=== PATIENT | female | born 1960 | race Caucasian/White ===

== ENCOUNTER 2016-12-20 04:31 | Inpatient (IN) ==
--- NOTE | 2016-12-20 05:12 | Emergency Department Note ---
Joni Cole Brittany, am scribing for, and in the presence of, Lorne Lugo MD 05:01. Parish Cole Robert M, MD, personally performed the services described in this documentation, ascribed by Alicia Quinones in my presence, and it is both accurate and complete 507 . Arrival - Arrival Chief Complaint: Abdominal / Flank Pain Stated Complaint: abd pain ED Nursing Triage Note: Patient to room via ems. Patient was transfered from [facility] for obstructive gallstone of the common bile duct. Mode of Arrival: Stretcher Limitations: No Limitations Source: Patient, Family - History of Present Illness HPI Narrative: This is a 56 y/o white female,who presents to the ED by EMS for further evaluation of obstructive gallstone. She was transferred from [facility] for further evaluation of obstructive gallstones of the common bile duct. She reports she was having right upper quadrant pain which radiated into her back. She states the pain was so intense she started to vomit. Pt reports the pain is now gone. Pt has no other complaints/pain in the ED at this time. Pt has a PMHx of HTN and NIDDM. Pt denies a surgical Hx. Pt denies a family medical Hx. Pt denies a social Hx. Onset (ago): hour(s) (Earlier today) Consistency: now resolved Severity: moderate Allergies/Adverse Reactions: Allergies Allergy/AdvReac Type Severity Reaction Status Date / Time No Known Allergies Allergy Unverified 12/20/16 04:39 Home Medications: Home Medications Medication Instructions Recorded Confirmed Type Dapagliflozin Propanediol [Farxiga] 20 mg PO DAILY 12/20/16 12/20/16 History Lisinopril 20 mg PO DAILY 12/20/16 12/20/16 History Review of System - Review of System 12 point system: reviewed and no additional remarkable complaints except as stated - Review of System Gastrointestinal: Present: abdominal pain, nausea, vomiting Medical,Surgical,& Family Hx - Medical History Cardio: History of: Hypertension Endocrine: History of: Diabetes Mellitus (NIDDM) - Social History Smoking Status: Never smoker Frequency of Alcohol Use: None Type of Drug Use: None Exam Vital Signs: Vital Signs Temperature 97.8 F 12/20/16 04:32 Pulse Rate 94 H 12/20/16 04:32 Respiratory Rate 18 12/20/16 04:32 Blood Pressure 128/58 12/20/16 04:32 O2 Sat by Pulse Oximetry 97 12/20/16 04:32 - General General appearance: alert, in no apparent distress - Head Head exam: Present: atraumatic, normocephalic, normal inspection - Eye Eye exam: Present: normal appearance, PERRL, EOMI. Absent: nystagmus, miosis, mydriasis - ENT ENT exam: Present: normal exam, normal oropharynx, mucous membranes moist - Neck Neck exam: Present: normal inspection, full ROM, trachea midline. Absent: tenderness, meningismus, lymphadenopathy, thyromegaly - Chest Chest inspection: Present: normal inspection, symmetric chest wall rise. Absent : tenderness, rash, abscess - Respiratory Respiratory exam: Present: normal lung sounds bilaterally. Absent: rales, respiratory distress, rhonchi, stridor, wheezes - Cardiovascular Cardiovascular exam: Present: regular rate, normal rhythm, normal heart sounds. Absent: murmur, rubs, gallop, clicks, JVD - Abdominal Exam Abdominal exam: Present: soft, tenderness (Mild uppergastric tenderness), normal bowel sounds. Absent: distention, guarding, rebound, rigidity - Rectal Exam Rectal exam: Present: deferred - Extremities Exam Extremities exam: Present: normal inspection, full ROM, normal capillary refill. Absent: pedal edema, joint swelling, calf tenderness - Back Exam Back exam: Present: normal inspection, full ROM. Absent: tenderness, muscle spasm, rashes - Neurological Exam Neurological exam: Present: alert, oriented X3, CN II-XII intact. Absent: motor sensory deficit - Psychiatric Psychiatric exam: Present: normal affect, normal mood. Absent: depressed, agitated, anxious, flat affect, manic - Skin Skin exam: Present: warm, dry, intact, normal color. Absent: rash, cyanosis, diaphoresis, erythema, pallor, mottled Course - Consultations Consultation #1: Dr. Luis Hancock has been paged and will admit the patient. Time: 05:08 Disposition Clinical Impression: Choledocholithiasis Case discussed with: patient, patient's family Disposition: Disch To Home/Self Care Condition: Stable Time of Disposition: 05:08
--- NOTE | 2016-12-20 05:36 | Hospitalist History & Physical ---
Assessment and Plan (1) Cholecystitis Status: Acute Current Visit: Yes (2) Diabetes Status: Acute Current Visit: Yes (3) Choledocholithiasis Status: Acute Assessment and plan: Plan for this patient will be admission to the hospital. We will keep her n.p.o. provide her with IV fluids antibiotics analgesia and surgery consult. We will also order a right upper quadrant abdominal ultrasound Current Visit: Yes History of Present Illness Chief complaint: Abdominal pain History of present illness: Ms. Zurita is a 56 year old female past medical history significant for diabetes and anemia who is been experiencing abdominal pain off and on 1 year. Patient reports that her pains and be associated with eating during this time. She reports for the past week her symptoms are really increased. That this pain has been coming and going and when it occurs it she rates a 10 out of 10. It seems to be upper gastric and radiates to her back. She gets real nauseated with emesis. She went to [place] today and had a CT scan that showed a distended gallbladder with a thickened wall consistent with cholecystitis. I was consulted to admit her to the ER. Home Medications Medication Instructions Recorded Confirmed Type Dapagliflozin Propanediol [Farxiga] 20 mg PO DAILY 12/20/16 12/20/16 History Lisinopril 20 mg PO DAILY 12/20/16 12/20/16 History Allergies Allergy/AdvReac Type Severity Reaction Status Date / Time No Known Allergies Allergy Unverified 12/20/16 04:39 Medical,Surgical,& Family Hx - Medical History Cardio: History of: Hypertension Endocrine: History of: Diabetes Mellitus (NIDDM) - Surgical History Reproductive Surgeries: Surgical HX of;: Section Orthopedic Surgeries: Surgical HX of;: Orthopedic Surgery - Family History Family History: Reports;: Family Cancer, Family Diabetes, Additional Family History Additional Family History: Gallbladder issues - Social History Smoking Status: Never smoker Frequency of Alcohol Use: None Type of Drug Use: None 12 point system: reviewed and no additional remarkable complaints except as stated Exam - Constitutional Vitals: Period Temp Pulse Resp BP Sys/Morrissey Pulse Ox Last 24 Hr 97.8 F-97.8 F 94-94 18-18 128-128/58-58 97 General appearance: no acute distress, over weight - Head Head exam: Present: normal inspection - Eye Eye exam: Present: EOMI Pupils: Present: TUCKER - ENT ENT exam: Present: normal exam - Neck Neck exam: Present: normal inspection - Respiratory Respiratory exam: Present: clear to auscultation bilaterally - Cardiovascular Cardiovascular exam: Present: regular rate and rhythm - GI/Abdominal GI/Abdominal exam: Present: normal bowel sounds, tenderness. Absent: rebound - Extremities Exam Extremities exam: Present: normal inspection - Back Exam Back exam: Present: normal inspection - Neurological Exam Neurological exam: Present: alert - Psychiatric Psychiatric exam: Present: normal affect - Skin Skin exam: Present: normal color Results - Labs Labs: Labs from outside facility displayed glucose 140 BUN 5 creatinine 0.7 calcium 7.8 sodium 145 potassium 3.5 chloride 109 bicarb 27 total protein 6.7 serum albumin 2.7 total bili 3.2 direct bili 1.7 alk phos 216 ALT 62 AST 121 lipase 358 white count 7.1 hemoglobin 13.6 hematocrit 40.[address] scan displayed a 4.4 mm probable obstructive gallstone within the region of the common bile duct within the pancreatic head near the sphincter of Oddi. Distended gallbladder with thickened wall. Cholelithiasis. Small amount of perihepatic free fluid.
[2016-12-20] MEDS ORDERED: ONDANSETRON 4 MG/2 ML VIAL IV PRN (05:41)
[2016-12-20] MEDS ORDERED: GLUCAGON 1 MG VIAL IM PRN (05:47)
[2016-12-20] MEDS ORDERED: DEXTROSE 50% 25 GM/50 ML VIAL IV PRN (05:47)
[2016-12-20] MEDS ORDERED: POTASSIUM CHLORIDE INJ 20 MEQ in SODIUM CHLORIDE 0.45% 1,000 ML IV SCH (06:00)
[2016-12-20] MEDS: SODIUM CHLOR 0.45% KCL 20 MEQ 20 MEQ/1,000 ML BAG IV SCH ×2 (07:56→21:20)
[2016-12-20] MEDS: INSULIN REGULAR 100 UNIT/ML SUBCUT SCH ×2 (09:15→21:07)
[2016-12-20] MEDS: PIPERACILLIN/TAZOBACTAM 3,375 MG in SODIUM CHLORIDE 0.9% 100 ML IV SCH ×2 (09:15→20:58)
--- NOTE | 2016-12-20 10:56 | Gastrointestinal Consult Note ---
Assessment and Plan (1) Choledocholithiasis Status: Acute Assessment and plan: 12/20-One year history of abdominal pain, post prandial, with episodes of nausea and vomiting, worsening over the last several days. Findings on CT scan at outside facility of 4.4mm galstone at CBD within pancreatic head near sphincter of Emilio, distended gallbaldder with thickend wall and CBD at 1.6cm, splenomegaly. Elevated LFT in [facility] [address]. Labs pending at present time. Tentative ERCP for tomorrow. Start clear liquid diet. Plan and addendum to follow by Dr Interiano. Current Visit: Yes History of Present Illness Chief complaint: Abdominal pain History of present illness: Ms. Zurita is a 56 year old female who presented to the hospital with worsening abdominal pain, nausea and vomiting. Patient states that the abdominal pain began a year ago. She states that it was almost always postprandial and would last for seconds to minutes at a time. Initially the pain was located in the right upper quadrant, epigastric area and was associated with mild nausea. The pain has here recently progressed to right upper quadrant pain radiating around to her back with nausea and vomiting. She states that she initially had this checked out a year ago and was told that she had splenomegaly but no other findings were noted. She did mention that she had elevated liver enzymes at that time but this was felt to be related to fatty liver. Patient states that the pain became so severe on yesterday that she sought medical treatment at [facility]. She was found on exam there to have elevated bilirubin and ALT. She also had a CT scan done with findings of 4.4mm galstone at CBD within pancreatic head near sphincter of Emilio, distended gallbaldder with thickend wall and CBD at 1.6cm, splenomegaly. She was transferred to our facility for further care. Dr. Ag is consulted this morning. Labs are currently pending at this present time. Home Medications Medication Instructions Recorded Confirmed Type Dapagliflozin Propanediol [Farxiga] 20 mg PO BEDTIME 12/20/16 12/20/16 History Liraglutide [Victoza 2-Regulo] 0.6 mg SUBCUT DAILY 12/20/16 12/20/16 History Lisinopril 20 mg PO DAILY 12/20/16 12/20/16 History Allergies Allergy/AdvReac Type Severity Reaction Status Date / Time No Known Allergies Allergy Unverified 12/20/16 04:39 Medical,Surgical,& Family Hx - Medical History Cardio: History of: Hypertension HEENT: History of: Eye Problem Endocrine: History of: Diabetes Mellitus (NIDDM) Respiratory: History of: Bronchitis Genitourinary: History of: Kidney Stones Gastrointestinal: History of: GERD Hematology: History of: Anemia No history of: Blood Transfusion Reaction - Surgical History Thoracic Surgeries: Surgical HX of;: Lithotripsy Patient denies;: Lobectomy HEENT Surgeries: Surgical HX of: Tonsilectomy & Adenoidectomy Patient denies: Eye Surgery, Thyroid Surgery Abdominal Surgeries: Surgical HX of: Colonoscopy Reproductive Surgeries: Surgical HX of;: Section Orthopedic Surgeries: Surgical HX of;: Orthopedic Surgery, Spinal Surgery (one at 17 years old and one at 37 to remove scar tissue) - Family History Family History: Reports;: Family Cancer, Family Diabetes, Additional Family History - Social History Smoking Status: Never smoker Frequency of Alcohol Use: None Type of Drug Use: None 12 point system: reviewed and no additional remarkable complaints except as stated - Constitutional Constitutional: Present: as per HPI - EENT Eyes: Present: as per HPI Ears: Present: as per HPI Nose, mouth and throat: Present: as per HPI - Cardiovascular Cardiovascular: Present: as per HPI - Respiratory Respiratory: Present: as per HPI - Gastrointestinal Gastrointestinal: Present: as per HPI, abdominal pain, nausea, vomiting - Genitourinary Genitourinary: Present: as per HPI - Musculoskeletal Musculoskeletal: Present: as per HPI - Neurological Neurological: Present: as per HPI - Psychiatric Psychiatric: Present: as per HPI - Endocrine Endocrine: Present: as per HPI - Hematologic/Lymphatic Hematologic/Lymphatic: Present: as per HPI Exam - Constitutional Vitals: Period Temp Pulse Resp BP Sys/Morrissey Pulse Ox Last 24 Hr 98.6 F 92 20 141/72 94 General appearance: normal weight, no acute distress - Head Head exam: Present: normal inspection, normocephalic - Eye Eye exam: Present: other (lids and conjunctiva unremarkable). Absent: scleral icterus - ENT ENT exam: Present: normal exam, normal oropharynx - Neck Neck exam: Present: normal inspection - Respiratory Respiratory exam: Present: clear to auscultation bilaterally. Absent: rales, rhonchi, wheezes - Cardiovascular Cardiovascular exam: Present: regular rate and rhythm. Absent: diastolic murmur , JVD, systolic murmur - GI/Abdominal GI/Abdominal exam: Present: normal bowel sounds, tenderness, soft. Absent: ascites, distended, mass, organomegaly - Extremities Exam Extremities exam: Present: normal inspection, full ROM - Back Exam Back exam: Present: normal inspection - Neurological Exam Neurological exam: Present: alert, oriented X3 - Psychiatric Psychiatric exam: Present: normal affect, normal mood - Skin Skin exam: Present: normal color, warm, dry Quality Measures - Stroke Symptom Onset Unknown: No
[2016-12-20 12:00] LABS: Albumin 2.5 G/DL (3.4-5.0); Bilirubin,Total 4.4 MG/DL (0.2-1.0); Calcium 7.5 MG/DL (8.5-10.1); Osmolality,Calculated 284.7 MOS/KG (273-304); Potassium 3.7 MMOL/L (3.5-5.1); Total Protein 5.8 G/DL (6.4-8.3)
[2016-12-20 12:01] LABS: Basophils % 0.4 % (0.0-0.8); Eosinophils # 0.1 10*3/uL (0.0-0.87); Eosinophils % 1.3 % (0.00-10.9); Hematocrit 38.2 VOL% (35.7-47.0); Hemoglobin 12.5 GM/DL (12.0-16.0); Immature Granulocytes % 0.4 %; Immature Granulocytes Absolute 0.02 #; Lymphocytes # 1.3 10*3/uL (1.4-4.0); Mean Corpuscular HGB Conc 32.7 GM/DL (32-36); Mean Corpuscular Hemoglobin 31 PG (27-34); Mean Corpuscular Volume 93.2 FL (87-102); Mean Platelet Volume 12.2 FL (9.6-12.0); Monocytes # 0.7 10*3/uL (0.11-0.8); Monocytes % 15.6 % (1.7-12.7); Neutrophils # 2.4 10*3/uL (1.4-7.4); Neutrophils % 53.3 % (38.7-73.9); Red Cell Distribution Width 16.3 % (9.3-17.3); White Blood Count 4.5 T/CUMM (4-12)
[2016-12-20 12:27] LABS: Platelet Count 72 T/CUMM (130-400)
[2016-12-20 12:59] LABS: Eosinophils 1 % (0-10); Hypochromasia 1+; Lymphocytes 22 % (20-55); Ovalocytes Slight; Platelet Estimate Decreased; Segmented Neutrophils 58 % (50-85); Total Cells Counted 100
--- NOTE | 2016-12-20 14:29 | General Surgery Consult Note ---
Assessment and Plan (1) Choledocholithiasis Status: Acute Assessment and plan: This patient has choledocholithiasis and this will be treated with GI consultation for ERCP followed by interval laparoscopic cholecystectomy. Current Visit: Yes History of Present Illness Chief complaint: abdominal pain History of present illness: Ms. Zurita is a 56 year old female admitted with abdominal pain and evidence of choledocholithiasis and cholelithiasis on CT scan from [facility] with elevated bilirubin. She cannot really say how long she has been having intermittent abdominal pain with nausea for but this current episode started last Tuesday and persisted through Tuesday and she presented to the ER. She was transferred to [place] for management. She has had a but no other abdominal surgical history. Home Medications Medication Instructions Recorded Confirmed Type Dapagliflozin Propanediol [Farxiga] 20 mg PO BEDTIME 12/20/16 12/20/16 History Liraglutide [Victoza 2-Regulo] 0.6 mg SUBCUT DAILY 12/20/16 12/20/16 History Lisinopril 20 mg PO DAILY 12/20/16 12/20/16 History Allergies Allergy/AdvReac Type Severity Reaction Status Date / Time No Known Allergies Allergy Unverified 12/20/16 04:39 Medical,Surgical,& Family Hx - Medical History Cardio: History of: Hypertension HEENT: History of: Eye Problem Endocrine: History of: Diabetes Mellitus (NIDDM) Respiratory: History of: Bronchitis Genitourinary: History of: Kidney Stones Gastrointestinal: History of: GERD Hematology: History of: Anemia No history of: Blood Transfusion Reaction - Surgical History Thoracic Surgeries: Surgical HX of;: Lithotripsy Patient denies;: Lobectomy HEENT Surgeries: Surgical HX of: Tonsilectomy & Adenoidectomy Patient denies: Eye Surgery, Thyroid Surgery Abdominal Surgeries: Surgical HX of: Colonoscopy Reproductive Surgeries: Surgical HX of;: Section Orthopedic Surgeries: Surgical HX of;: Orthopedic Surgery, Spinal Surgery (one at 17 years old and one at 37 to remove scar tissue) - Family History Family History: Reports;: Family Cancer, Family Diabetes, Additional Family History - Social History Smoking Status: Never smoker Frequency of Alcohol Use: None Type of Drug Use: None - Constitutional Constitutional: Present: as per HPI - EENT Nose, mouth and throat: Present: as per HPI - Cardiovascular Cardiovascular: Present: as per HPI - Respiratory Respiratory: Present: as per HPI - Gastrointestinal Gastrointestinal: Present: as per HPI - Genitourinary Genitourinary: Present: as per HPI - Musculoskeletal Musculoskeletal: Present: as per HPI - Neurological Neurological: Present: as per HPI - Endocrine Endocrine: Present: as per HPI Hematologic/Lymphatic: Present: as per HPI Exam - Constitutional Vitals: Period Temp Pulse Resp BP Sys/Morrissey Pulse Ox Last 24 Hr 98.6 F-99.6 F 75-92 18-20 118-141/63-72 94 General appearance: no acute distress, over weight - Head Head exam: Present: normal inspection, normocephalic - Eye Eye exam: Present: EOMI. Absent: scleral icterus Pupils: Present: TUCKER - ENT ENT exam: Present: normal exam Mouth exam: Present: normal external inspection, normal voice - Neck Neck exam: Present: normal inspection, trachea midline - Respiratory Respiratory exam: Present: clear to auscultation bilaterally. Absent: accessory muscle use, chest wall tenderness - Cardiovascular Cardiovascular exam: Present: RRR. Absent: systolic murmur, tachycardia - GI/Abdominal GI/Abdominal exam: Present: Baires's sign, tenderness, soft. Absent: distended , rebound - Extremities Exam Extremities exam: Present: normal inspection, normal capillary refill - Back Exam Back exam: Present: normal inspection - Neurological Exam Neurological exam: Present: alert, oriented X3 Speech: Present: normal - Skin Skin exam: Present: normal color, warm Quality Measures - Stroke Symptom Onset Unknown: No Results - Labs CBC & BMP: 12/20/16 10:27 12/20/16 10:34 - Diagnostic Findings Procedure: CT Abdomen and Pelvis: image reviewed by me, report reviewed by me
--- NOTE | 2016-12-20 15:57 | Hospitalist Progress Note ---
Assessment and Plan - Time spent with patient Time spent with patient: Greater than 30 minutes (1) Cholecystitis Status: Acute Assessment and plan: Surgery on board, continue zosyn. Current Visit: Yes (2) Choledocholithiasis Status: Acute Assessment and plan: ERCP tomorrow. Current Visit: Yes (3) Diabetes Status: Acute Assessment and plan: SSI. Current Visit: Yes Hospitalist: Subjective Interval history: No complaints, no overnight events, admitted for cholecystitis. Exam - Constitutional Vitals: Period Temp Pulse Resp BP Sys/Morrissey Pulse Ox Last 24 Hr 98.6 F-99.6 F 75-92 18-20 118-141/63-72 94 General appearance: no acute distress - Head Head exam: Present: normocephalic, atraumatic - Eye Eye exam: Present: EOMI Pupils: Present: TUCKER - ENT ENT exam: Present: normal exam - Neck Neck exam: Present: normal inspection - Respiratory Respiratory exam: Present: clear to auscultation bilaterally. Absent: rhonchi, wheezes - Cardiovascular Cardiovascular exam: Present: regular rate and rhythm. Absent: gallop, rubs, systolic murmur - GI/Abdominal GI/Abdominal exam: Present: normal bowel sounds, soft. Absent: distended, firm , guarding, tenderness, rebound - Extremities Exam Extremities exam: Present: normal inspection. Absent: calf tenderness, edema Results - Labs CBC & BMP: 12/20/16 10:27 12/20/16 10:34 Lab Results: I have reviewed the past 24 hour labs Quality Measures - Stroke Symptom Onset Unknown: No
[2016-12-20] MEDS: MORPHINE 2 MG/1 ML SYRINGE IV PRN (20:48)
[2016-12-21] MEDS: INSULIN REGULAR 100 UNIT/ML SUBCUT SCH ×3 (00:53→16:46)
[2016-12-21] MEDS: PIPERACILLIN/TAZOBACTAM 3,375 MG in SODIUM CHLORIDE 0.9% 100 ML IV SCH ×3 (04:16→22:06)
[2016-12-21 05:37] LABS: Basophils % 0.3 % (0.0-0.8); Eosinophils # 0.1 10*3/uL (0.0-0.87); Eosinophils % 2.9 % (0.00-10.9); Hematocrit 36.2 VOL% (35.7-47.0); Lymphocytes # 1.2 10*3/uL (1.4-4.0); Lymphocytes % 37.9 % (21.3-54.2); Mean Corpuscular HGB Conc 33.1 GM/DL (32-36); Mean Corpuscular Hemoglobin 31 PG (27-34); Mean Corpuscular Volume 92.6 FL (87-102); Mean Platelet Volume 11.8 FL (9.6-12.0); Monocytes # 0.5 10*3/uL (0.11-0.8); Monocytes % 15.9 % (1.7-12.7); Neutrophils # 1.4 10*3/uL (1.4-7.4); Red Blood Count 3.91 MC/CUMM (3.8-5.5); Red Cell Distribution Width 16.4 % (9.3-17.3); White Blood Count 3.1 T/CUMM (4-12)
[2016-12-21 05:42] LABS: Platelet Count 66 T/CUMM (130-400)
[2016-12-21 05:48] LABS: INR 1.5; PT Patient Result 15.9 SECS
[2016-12-21 06:02] LABS: Eosinophils 2 % (0-10); Lymphocytes 36 % (20-55); Segmented Neutrophils 51 % (50-85); Total Cells Counted 100
[2016-12-21 06:03] LABS: Hypochromasia 1+; Microcytosis 1+; Platelet Estimate Decreased
[2016-12-21 06:12] LABS: Calcium 7.2 MG/DL (8.5-10.1); Osmolality,Calculated 279.1 MOS/KG (273-304); Potassium 3.4 MMOL/L (3.5-5.1)
[2016-12-21 06:19] LABS: Albumin 2.3 G/DL (3.4-5.0); Bilirubin,Total 5.1 MG/DL (0.2-1.0); Calcium 7.3 MG/DL (8.5-10.1); Potassium 3.4 MMOL/L (3.5-5.1); Total Protein 5.2 G/DL (6.4-8.3)
[2016-12-21] MEDS: MORPHINE 2 MG/1 ML SYRINGE IV PRN ×2 (08:13→16:40)
--- NOTE | 2016-12-21 08:33 | Ultrasound Report ---
Referring Physician: Luis Hacnock Exam: US gallbladder Date: December 21, 2016 Reason: Generalized abdominal pain Comparison: Outside CT abdomen and pelvis without contrast December 20, 2016 Technique: Grayscale ultrasound images of the right abdomen were obtained. Ultrasound images were captured and stored. Findings: The liver measures 12.4 cm in length. The liver has a slightly nodular contour and heterogeneous echotexture. This raises the possibility of cirrhosis. No suspicious hepatic lesion is identified. There is sludge and at least one stone within the gallbladder. The gallbladder wall is also thickened, and there is minimal pericholecystic fluid. The food sales clerk also reports a positive sonographic Baires's sign. This is concerning for acute cholecystitis. The common bile duct is borderline prominent, measuring 0.5 cm in diameter near the gallbladder. The visualized pancreas is unremarkable, but it is partially obscured by bowel gas. The right kidney measures 11.4 x 5.5 x 5.3 cm. No right hydronephrosis or suspicious renal lesion is identified. No ascites is seen. The visualized IVC appears patent. Impression: 1. The gallbladder contains sludge and at least one stone. There is also gallbladder wall thickening, minimal pericholecystic fluid and a positive sonographic Baires's sign. This is concerning for acute cholecystitis. 2. The liver has a slightly nodular contour and heterogeneous echotexture. This raises the possibility of cirrhosis. 3. The common bile duct is borderline prominent, measuring 0.5 cm in diameter near the gallbladder. This is nonspecific, and please correlate with bilirubin levels. Findings were discussed with Dr. Camejo on December 21, 2016 at 8:29 AM. This is a critical test. PROCEDURE INTERPRETED AT [facility] DEPARTMENT OF RADIOLOGY Final Report Signed by: Dr. Kacie De La Cruz
--- NOTE | 2016-12-21 10:20 | General Surgery Progress Note ---
Assessment and Plan (1) Choledocholithiasis Status: Acute Assessment and plan: I will follow up the results of her ERCP today. Plan for cholecystectomy tomorrow if everything goes well today. Current Visit: Yes Subjective Narrative: The patient was not in her room this morning and I am assuming she is gone for GI lab for ERCP. Her bilirubin went up today. Exam - Constitutional Vitals: Period Temp Pulse Resp BP Sys/Morrissey Pulse Ox Last 24 Hr 98.0 F-99.7 F 78-84 18-20 118-139/62-67 98 Results - Labs CBC & BMP: 12/21/16 05:05 12/21/16 05:05 Quality Measures - Stroke Symptom Onset Unknown: No
--- NOTE | 2016-12-21 14:01 | Hospitalist Progress Note ---
Assessment and Plan - Time spent with patient Time spent with patient: Greater than 30 minutes (1) Cholecystitis Status: Acute Assessment and plan: Surgery on board, continue zosyn. Current Visit: Yes (2) Choledocholithiasis Status: Acute Assessment and plan: ERCP today Current Visit: Yes (3) Diabetes Status: Acute Assessment and plan: SSI. Current Visit: Yes Hospitalist: Subjective Interval history: Patient has been having low-grade fevers. Still has right upper quadrant tenderness. Has been n.p.o. overnight. Scheduled for ERCP today. Exam - Constitutional Vitals: Period Temp Pulse Resp BP Sys/Morrissey Pulse Ox Last 24 Hr 98.0 F-99.7 F 78-84 16-20 125-145/62-67 95-98 General appearance: no acute distress - Head Head exam: Present: normocephalic, atraumatic - Eye Eye exam: Present: EOMI Pupils: Present: TUCKER - ENT ENT exam: Present: normal exam - Neck Neck exam: Present: normal inspection - Respiratory Respiratory exam: Present: clear to auscultation bilaterally. Absent: rhonchi, wheezes - Cardiovascular Cardiovascular exam: Present: regular rate and rhythm. Absent: gallop, rubs, systolic murmur - GI/Abdominal GI/Abdominal exam: Present: normal bowel sounds, tenderness, soft. Absent: distended, firm, guarding, rebound - Extremities Exam Extremities exam: Present: normal inspection. Absent: calf tenderness, edema Results - Labs CBC & BMP: 12/21/16 05:05 12/21/16 05:05 Lab Results: I have reviewed the past 24 hour labs Quality Measures - Stroke Symptom Onset Unknown: No
--- NOTE | 2016-12-21 14:14 | History and Physical Update ---
History and Physical Update - History and Physical H&P was reviewed, the patient examined and there: are no changes in the patients condition since last H&P was completed. - Physical Exam Mental Status: alert and oriented Heart: regular rate and rhythm Lung: clear to auscultation Abdomen: within normal limits Vitals: within normal limits
[2016-12-21] MEDS ORDERED: LIDOCAINE 2% 5 ML VIAL ONE (14:16)
[2016-12-21] MEDS ORDERED: PROPOFOL 200 MG/20 ML VIAL IV ONE (14:16)
--- NOTE | 2016-12-21 14:16 | Operative Note ---
Date of procedure: 12/21/16 Pre-op diagnosis: Choledocholithiasis Procedure: Procedure: Endoscopic retrograde cholangiopancreatography with common bile duct sphincterotomy and common bile duct stone removal with balloon Brief clinical abstract: Patient is a 56-year-old female admitted with biliary type pain. She is noted to be jaundiced and had CBD stone noted on outside CT. She also has thrombocytopenia and abnormal liver tests notable for hypoalbuminemia and had splenomegaly on CT. Procedure findings: After informed consent was obtained, patient was placed in the prone position. Therapeutic video duodena scope was inserted in the upper esophagus in blind fashion with no resistance encountered. Esophageal mucosa was notable for grade II varices noted extending from 22 cm below incisors down to the squamocolumnar junction. No bleeding stigmata were seen. Stomach was examined including retroflexed view with no abnormalities noted. The pyloric channel, duodenal bulb, second and third portion of the duodenum including the appearance of the ampulla were normal. Sphincterotome was used and initially pancreatogram obtained. Head neck and body were opacified with normal appearance. The tail was intentionally underfilled. The endoscope was repositioned. Biliary tree was deeply cannulated with sphincterotome using 0.035 inch guidewire. Biliary tree was filled with contrast. Common bile duct and common hepatic duct were moderately dilated to approximately 10 mm diameter. A small filling defect approximately 4-5 mm diameter was noted in the distal common bile duct consistent with a stone. Cystic duct was patent. Multiple stones were noted in the gallbladder. 1 cm diameter common bile duct sphincterotomy was performed. No significant bleeding was noted from this. The sphincterotome was withdrawn and occlusion balloon was advanced over the wire into the proximal common hepatic duct. This was dragged distally. Stone was noted to pass fluoroscopically. Occlusion cholangiogram was obtained afterwards with no residual filling defects seen. Excellent drainage was noted through the sphincterotomy opening. The endoscope was withdrawn. She appeared to tolerate the procedure well. Impression: #1 grade II esophageal varices-with other clinical findings suggests probable cirrhosis #2 choledocholithiasis-status post endoscopic removal #3 dilated biliary tree related to #2 #4 normal distal pancreas Recommendations: Follow symptomatically after above. She will need serologic evaluation with viral hepatitis markers, antinuclear antibody, and screen for hemochromatosis. Anesthesia: [facility] Surgeon / Physician: Tiago Reilly Thaggard Estimated blood loss: minimal Specimens: none sent Condition: stable Disposition: post procedure unit Results - Labs CBC & BMP: 12/21/16 05:05 12/21/16 05:05 Discharge Plan - Discharge Medications No Action Lisinopril 20 mg PO DAILY Dapagliflozin Propanediol [Farxiga] 20 mg PO BEDTIME Liraglutide [Victoza 2-Regulo] 0.6 mg SUBCUT DAILY - Follow Up or Referral - Forms/Instructions
[2016-12-21] MEDS ORDERED: GLUCAGON 1 MG VIAL ONE (14:25)
--- NOTE | 2016-12-21 14:56 | Anesthesia ---
Anesthesia Post OP - Post Ansesthetic Evaluation Patient seen in post op: Yes Resp: within normal limits CV: within normal limits Mental: within normal limits Temp: within normal limits [id number]: within normal limits Nausea and Vomiting: within normal limits Pain: within normal limits
[2016-12-21] MEDS ORDERED: MIDAZOLAM 2 MG/2 ML VIAL ONE (15:02)
[2016-12-21] MEDS ORDERED: fentaNYL 100 MCG/2 ML VIAL ONE (15:03)
[2016-12-21] MEDS: SODIUM CHLOR 0.45% KCL 20 MEQ 20 MEQ/1,000 ML BAG IV SCH (23:05)
[2016-12-22] MEDS: INSULIN REGULAR 100 UNIT/ML SUBCUT SCH ×4 (01:09→11:49)
[2016-12-22] MEDS: PIPERACILLIN/TAZOBACTAM 3,375 MG in SODIUM CHLORIDE 0.9% 100 ML IV SCH ×3 (05:05→20:52)
[2016-12-22 06:12] LABS: % Iron Saturation 44.9 % (18-50); Ferritin 50.1 ng/ml (8-252)
[2016-12-22 06:58] LABS: Hepatitis A Ab IgM Quant 0.11 Index; Hepatitis A Ab IgM Result Negative (Negative); Hepatitis B Surface Ag Quant < 0.10 Index
[2016-12-22 06:59] LABS: Hepatitis B Core IgM Quant 0.17 Index; Hepatitis B Core IgM Result Negative (Negative); Hepatitis B Surface Ag Result Negative (Negative); Hepatitis C Virus Ab Quant 0.24 Index; Hepatitis C Virus Ab Result Negative (Negative)
--- NOTE | 2016-12-22 07:15 | Fluoroscopy Report ---
Referring Physician: Reilly Interiano Exam: [place] ERCP with sphincterotomy Date: December 21, 2016 Reason: Gallstones, elevated liver functions study, ductal stone Comparison: Outside CT abdomen and pelvis December 20, 2016, gallbladder ultrasound December 21, 2016 Findings: 17 images of the abdomen were provided after performance of an ERCP. A small filling defect is seen within the gallbladder and is consistent with a gallstone. There is also a small filling defect within the distal common hepatic duct, which could represent a biliary stone. A balloon sweep was performed, and there reportedly was a sphincterotomy. Impression: Images are presumed satisfactory for the purposes of the procedure. PROCEDURE INTERPRETED AT [facility] DEPARTMENT OF RADIOLOGY Final Report Signed by: Dr. Kacie De La Cruz
--- NOTE | 2016-12-22 10:46 | Hospitalist Progress Note ---
Assessment and Plan - Time spent with patient Time spent with patient: Greater than 30 minutes (1) Cholecystitis Status: Acute Assessment and plan: Surgery on board, continue zosyn. Defer to them. Current Visit: Yes (2) Choledocholithiasis Status: Acute Assessment and plan: ERCP successful. Current Visit: Yes (3) Diabetes Status: Acute Assessment and plan: SSI. Current Visit: Yes (4) Cirrhosis Status: Acute Assessment and plan: GI on board. Platelets stable. Current Visit: Yes Hospitalist: Subjective Interval history: Tmax 99.6 Reports feeling better post ERCP. Exam - Constitutional Vitals: Period Temp Pulse Resp BP Sys/Morrissey Pulse Ox Last 24 Hr 98.7 F-99.9 F 72-84 14-20 127-159/66-75 93-99 General appearance: no acute distress - Head Head exam: Present: normocephalic, atraumatic - Eye Eye exam: Present: EOMI Pupils: Present: TUCKER - ENT ENT exam: Present: normal exam - Neck Neck exam: Present: normal inspection - Respiratory Respiratory exam: Present: clear to auscultation bilaterally. Absent: rhonchi, wheezes - Cardiovascular Cardiovascular exam: Present: regular rate and rhythm. Absent: gallop, rubs, systolic murmur - GI/Abdominal GI/Abdominal exam: Present: normal bowel sounds, tenderness, soft. Absent: distended, firm, guarding, rebound - Extremities Exam Extremities exam: Present: normal inspection. Absent: calf tenderness, edema Results - Labs CBC & BMP: 12/21/16 05:05 12/21/16 05:05 Lab Results: I have reviewed the past 24 hour labs Quality Measures - Stroke Symptom Onset Unknown: No
--- NOTE | 2016-12-22 10:51 | General Surgery Progress Note ---
Assessment and Plan (1) Choledocholithiasis Status: Acute Assessment and plan: The patient had esophageal varices during her endoscopy that were seen yesterday. They were not bleeding. This indicates a fairly severe and more significant and appreciated degree of portal hypertension and after discussing her care with Dr. Interiano, we will hold off on surgery unless she continues to have symptoms after her sphincterotomy. A stone was removed from her common bile duct and so her choledocholithiasis should be resolved. Her cystic duct was patent on the ERCP which argues against acute cholecystitis. We will put her on Actigall and see if we can control her symptoms this way and try to avoid surgery in this patient with portal hypertension and increased risk of liver failure and bleeding with any sort of general anesthetic and especially with abdominal surgery. If she continues to have symptoms that interfere with her quality of life we can reconsider surgery at a later date. Current Visit: Yes Subjective Patient reports: Present: no new complaints, feels better, pain is less, tolerating liquids well, afebrile Exam - Constitutional Vitals: Period Temp Pulse Resp BP Sys/Morrissey Pulse Ox Last 24 Hr 98.7 F-99.9 F 72-84 14-20 127-159/66-75 93-99 General appearance: no acute distress, over weight - Head Head exam: Present: normal inspection, normocephalic - Eye Eye exam: Present: EOMI. Absent: scleral icterus Pupils: Present: TUCKER - ENT ENT exam: Present: normal exam Mouth exam: Present: normal external inspection, normal voice - Neck Neck exam: Present: normal inspection, trachea midline - Respiratory Respiratory exam: Present: clear to auscultation bilaterally. Absent: accessory muscle use, chest wall tenderness - Cardiovascular Cardiovascular exam: Present: RRR. Absent: systolic murmur, tachycardia - GI/Abdominal GI/Abdominal exam: Present: normal bowel sounds, soft. Absent: mass, Baires's sign, tenderness, rebound - Extremities Exam Extremities exam: Present: normal inspection, normal capillary refill - Back Exam Back exam: Present: normal inspection - Neurological Exam Neurological exam: Present: alert, oriented X3 Speech: Present: normal - Skin Skin exam: Present: normal color, warm Results - Labs CBC & BMP: 12/21/16 05:05 12/21/16 05:05 Quality Measures - Stroke Symptom Onset Unknown: No
--- NOTE | 2016-12-22 10:51 | Gastrointestinal Progress Note ---
Assessment and Plan (1) Choledocholithiasis Status: Acute Assessment and plan: 12/22-Abd pain improved, no N/V. Tolerating diet. ERCP findings noted. Serology workup noted. Plan and addendum to follow by Dr Interiano. 12/20-One year history of abdominal pain, post prandial, with episodes of nausea and vomiting, worsening over the last several days. Findings on CT scan at outside facility of 4.4mm galstone at CBD within pancreatic head near sphincter of Emilio, distended gallbaldder with thickend wall and CBD at 1.6cm, splenomegaly. Elevated LFT in [place]. Labs pending at present time. Tentative ERCP for tomorrow. Start clear liquid diet. Plan and addendum to follow by Dr Interiano. Current Visit: Yes Gastroenterology - PN: Subj Interval history: CC: Choledocholithiasis Pt is seen awake and alert, sitting up in bed. States she had a restful night and is feeling some better. She is having some mild abdominal tenderness to RUQ at present time. She denies any nausea or vomiting. Abdomen is soft, mild tenderness. ERCP findings noted with grade II varices, choledocholithiasis. Negative hepatitis panel noted as well as TANISHA. TIBC low with normal iron, ferritin and saturation. She is tolerating full liquid diet. ROS: Denies SOB or chest pain Exam (Progress Note) - Constitutional Vitals: Period Temp Pulse Resp BP Sys/Morrissey Pulse Ox Last 24 Hr 98.7 F-99.9 F 72-84 14-20 127-159/66-75 93-99 General appearance: normal weight, no acute distress - Head Head exam: Present: normal inspection, normocephalic - Eye Eye exam: Present: other (lids and conjunctiva unremarkable). Absent: scleral icterus - ENT ENT exam: Present: normal exam, normal oropharynx - Neck Neck exam: Present: normal inspection - Respiratory Respiratory exam: Present: clear to auscultation bilaterally. Absent: rales, rhonchi, wheezes - Cardiovascular Cardiovascular exam: Present: regular rate and rhythm. Absent: diastolic murmur , JVD, systolic murmur - GI/Abdominal GI/Abdominal exam: Present: normal bowel sounds, soft. Absent: ascites, distended, mass, organomegaly, tenderness - Extremities Exam Extremities exam: Present: normal inspection, full ROM - Back Exam Back exam: Present: normal inspection - Neurological Exam Neurological exam: Present: alert, oriented X3 - Psychiatric Psychiatric exam: Present: normal affect, normal mood - Skin Skin exam: Present: normal color, warm, dry Results - Labs CBC & BMP: 12/21/16 05:05 12/21/16 05:05 Lab Results: I have reviewed the past 24 hour labs
[2016-12-22] MEDS: URSODIOL 300 MG CAPSULE PO SCH ×2 (11:49→20:50)
[2016-12-22] MEDS: SODIUM CHLOR 0.45% KCL 20 MEQ 20 MEQ/1,000 ML BAG IV SCH ×2 (11:53→21:00)
[2016-12-22] MEDS: MORPHINE 2 MG/1 ML SYRINGE IV PRN (15:58)
[2016-12-23] MEDS: INSULIN REGULAR 100 UNIT/ML SUBCUT SCH ×6 (00:30→23:59)
[2016-12-23] MEDS: PIPERACILLIN/TAZOBACTAM 3,375 MG in SODIUM CHLORIDE 0.9% 100 ML IV SCH ×3 (04:48→21:48)
--- NOTE | 2016-12-23 06:38 | Oncology Consult Note ---
History of Present Illness History of present illness: Ms. Zurita is a 56 year old female admitted with GI complaints including signs and symptoms of cholecystitis. The patient has documented esophageal varices and the echocardiogram suggested nodularity of the liver. Ms. Zurita is a 56 year old female that I was asked to see because of thrombocytopenia. She was diagnosed as having cirrhosis, splenomegaly and thrombocytopenia over a year ago and sees a Dr. Jim Loja in [place] who has evaluated her thrombocytopenia and treated her with corticosteroids. She is off corticosteroids now. I discussed this diagnosis with her and we need to obtain the patient's records from [place]. She lives in [place] and goes to [place] for most of her medical treatment. She actually was diagnosed as having thrombocytopenia over a year ago when she saw her climbing guide for vaginal bleeding. She is continuing to have vaginal bleeding and spotting. Blood work on this admission included a platelet count of 72,000 and her most recent platelet count done today is 65,000. Her mean platelet volume is slightly elevated at 12.6. Her hemoglobin is 12.1 and her white cell count was 4500 on admission with an absolute neutrophil count 2400. Past medical history: No known allergies Social history: Past history of alcohol intake and she continues to drink very rarely. Family history is apparently negative for any blood dyscrasias or bleeding disorders. Her positive review of systems includes recent abdominal pain with fever and nausea. She has had recurrent vaginal bleeding, apparently without any primary FREQUENCY CHECKER abnormality or malignancy. She has a long history, of over one year, thrombocytopenia that has been treated with corticosteroids with response. ROS Gen.: No recent history of physical debilitation or problems other than the continued vaginal bleeding and spotting and the persistent thrombocytopenia. ENT: No history of chronic infections, epistaxis, chronic sore throat Lungs: No history of asthma, emphysema, hemoptysis, chronic pleurisy or long- term or chronic infections Cardiovascular: No history of angina, coronary artery disease, congestive heart failure, cardiovascular surgery or DVT/VTE GI: See present illness : No history of kidney stones, chronic kidney infections or hematuria. Musculoskeletal: No history of chronic bone or joint pain or focal muscle atrophy or bone or joint deformity. Neurologic: No history of seizures, convulsions or paralysis. Psychiatric: No history of chronic psychiatric illness or psychiatric medications. Lymphatic: No history of significant or long-term lymphadenopathy Hematologic: No history of anemia, bleeding disorders or blood dyscrasias or long-term elevation or depression white cell count or petechiae. Skin: No history of chronic skin infections or rashes or significant skin lesions. Physical examination: General: The patient is relatively well-developed well-nourished and in no acute distress and mildly overweight. Eyes: Lids and conjunctive are normal. ENT: Her trachea is midline. She has no neck masses. Her thyroid is normal. Her hearing is normal. Lungs: Breath sounds are normal without rubs, rales or rhonchi. There is symmetrical unlabored chest motion with respiration. Cardiovascular: Her heart rhythm is regular without murmur, gallop or rub. There is no jugular venous distention, clubbing, cyanosis or edema. Abdomen: She has had recent surgery and I did not do a close abdominal examination. Musculoskeletal: There is no focal muscle atrophy or bone or joint deformity. Neurologic: Cranial nerves II through XII are intact. No focal neurologic deficits. Nodes: I find no submandibular, cervical, supraclavicular or axillary adenopathy. Cursory skin examination does not reveal any petechiae. Impression: This lady has thrombocytopenia that is evidently related to cirrhosis. She has a remedy developer in [place] and we have obtained records from him. His name is Dr. Jim Loja. She should be stable with her current blood count. I will be out until Tuesday. Please consult Dr. Erickson if needed over the weekend. Thank you. Home Medications Medication Instructions Recorded Confirmed Type Dapagliflozin Propanediol [Farxiga] 20 mg PO BEDTIME 12/20/16 12/20/16 History Liraglutide [Victoza 2-Reuglo] 0.6 mg SUBCUT DAILY 12/20/16 12/20/16 History Lisinopril 20 mg PO DAILY 12/20/16 12/20/16 History Allergies Allergy/AdvReac Type Severity Reaction Status Date / Time No Known Allergies Allergy Unverified 12/20/16 04:39 Medical,Surgical,& Family Hx - Medical History Cardio: History of: Hypertension Neurology: History of: Seizures HEENT: History of: Eye Problem Endocrine: History of: Diabetes Mellitus (NIDDM) Respiratory: History of: Bronchitis Genitourinary: History of: Kidney Stones Gastrointestinal: History of: GERD Hematology: History of: Anemia No history of: Blood Transfusion Reaction - Surgical History Thoracic Surgeries: Surgical HX of;: Lithotripsy Patient denies;: Lobectomy HEENT Surgeries: Surgical HX of: Tonsilectomy & Adenoidectomy Patient denies: Eye Surgery, Thyroid Surgery Abdominal Surgeries: Surgical HX of: Colonoscopy Reproductive Surgeries: Surgical HX of;: Section Orthopedic Surgeries: Surgical HX of;: Orthopedic Surgery, Spinal Surgery (one at 17 years old and one at 37 to remove scar tissue) - Family History Family History: Reports;: Family Cancer, Family Diabetes, Additional Family History - Social History Smoking Status: Never smoker Frequency of Alcohol Use: None Type of Drug Use: None Exam - Constitutional Vitals: Period Temp Pulse Resp BP Sys/Morrissey Pulse Ox Last 24 Hr 97.4 F-99.6 F 77-85 18-20 131-144/63-70 94-98 Results - Labs CBC & BMP: 12/23/16 Unknown 12/23/16 Unknown Quality Measures - Stroke Symptom Onset Unknown: No
[2016-12-23 06:42] LABS: Albumin 2.2 G/DL (3.4-5.0); Bilirubin,Direct 1.4 MG/DL (0.0-0.20); Bilirubin,Indirect 1.7 MG/DL (0.0-1.0); Bilirubin,Total 3.1 MG/DL (0.2-1.0); Total Protein 5.1 G/DL (6.4-8.3)
[2016-12-23 06:50] LABS: Basophils % 0.4 % (0.0-0.8); Eosinophils # 0.1 10*3/uL (0.0-0.87); Eosinophils % 2.9 % (0.00-10.9); Hematocrit 36.3 VOL% (35.7-47.0); Hemoglobin 12.1 GM/DL (12.0-16.0); Immature Granulocytes % 0.4 %; Immature Granulocytes Absolute 0.01 #; Lymphocytes # 1.1 10*3/uL (1.4-4.0); Lymphocytes % 37.9 % (21.3-54.2); Mean Corpuscular HGB Conc 33.3 GM/DL (32-36); Mean Corpuscular Hemoglobin 30 PG (27-34); Mean Corpuscular Volume 91.2 FL (87-102); Mean Platelet Volume 12.6 FL (9.6-12.0); Monocytes # 0.5 10*3/uL (0.11-0.8); Monocytes % 17.7 % (1.7-12.7); Neutrophils # 1.1 10*3/uL (1.4-7.4); Neutrophils % 40.7 % (38.7-73.9); Platelet Count 65 T/CUMM (130-400); Red Blood Count 3.98 MC/CUMM (3.8-5.5); Red Cell Distribution Width 16.6 % (9.3-17.3); White Blood Count 2.8 T/CUMM (4-12)
[2016-12-23 07:12] LABS: Eosinophils 3 % (0-10); Hypochromasia 1+; Lymphocytes 34 % (20-55); Microcytosis 1+; Platelet Estimate Decreased; Segmented Neutrophils 45 % (50-85); Total Cells Counted 100
[2016-12-23 07:13] LABS: Albumin 2.3 G/DL (3.4-5.0); Bilirubin,Total 2.8 MG/DL (0.2-1.0); Calcium 7.5 MG/DL (8.5-10.1); Osmolality,Calculated 279.1 MOS/KG (273-304); Potassium 3.5 MMOL/L (3.5-5.1); Total Protein 5.1 G/DL (6.4-8.3)
--- NOTE | 2016-12-23 08:49 | General Surgery Progress Note ---
Assessment and Plan (1) Choledocholithiasis Status: Acute Assessment and plan: This patient is thought to have neutropenia and thrombocytopenia related to liver failure and cirrhosis and she did have esophageal varices on her endoscopy the Dr. Interiano did. She also has splenomegaly on her outside hospital CT scan. The initial plan was to perform an interval laparoscopic cholecystectomy after ERCP and sphincterotomy but because of her portal hypertension and cirrhosis these plans have been put on hold. She is still having significant symptoms but I would like to check a lipase to make sure she does not have post ERCP pancreatitis that could be causing her symptoms. She did have inflammatory changes in her gallbladder on the initial ultrasound but her cystic duct was patent on the ERCP so I think it is possible to manage this nonoperatively especially in a high risk medical patient. I will continue to follow her and will follow-up her lipase level today. Current Visit: Yes Subjective Patient reports: Present: no new complaints, still having pain, afebrile Narrative: The patient was having attacks of upper abdominal pain that was the same as when she came in with when she ate yesterday. It was associated with some nausea but no vomiting. She is afebrile. Her lab work this morning demonstrates decreasing bilirubin but there was no lipase checked. Exam - Constitutional Vitals: Period Temp Pulse Resp BP Sys/Morrissey Pulse Ox Last 24 Hr 98.4 F-99.6 F 77-85 18-20 130-144/63-70 94-98 - Head Head exam: Present: normal inspection - Eye Eye exam: Present: EOMI Pupils: Present: TUCKER - ENT ENT exam: Present: normal exam Mouth exam: Present: normal external inspection, normal voice - Neck Neck exam: Present: normal inspection, trachea midline - Respiratory Respiratory exam: Present: clear to auscultation bilaterally. Absent: accessory muscle use, chest wall tenderness - Cardiovascular Cardiovascular exam: Present: RRR. Absent: systolic murmur, tachycardia - GI/Abdominal GI/Abdominal exam: Present: normal bowel sounds, tenderness, soft. Absent: Baires's sign, rebound - Extremities Exam Extremities exam: Present: normal inspection, normal capillary refill - Back Exam Back exam: Present: normal inspection - Neurological Exam Neurological exam: Present: alert, oriented X3 Speech: Present: normal - Skin Skin exam: Present: normal color, warm Results - Labs CBC & BMP: 12/23/16 Unknown 12/23/16 Unknown Quality Measures - Stroke Symptom Onset Unknown: No
--- NOTE | 2016-12-23 09:27 | Oncology Consult Note ---
History of Present Illness History of present illness: Ms. Zurita is a 56 year old female that I was asked to see because of thrombocytopenia. She was diagnosed as having cirrhosis, splenomegaly and thrombocytopenia over a year ago and sees a Dr. Loja in [place] who has evaluated her thrombocytopenia and treated her with corticosteroids. She is off corticosteroids now. She was admitted here Home Medications Medication Instructions Recorded Confirmed Type Dapagliflozin Propanediol [Farxiga] 20 mg PO BEDTIME 12/20/16 12/20/16 History Liraglutide [Victoza 2-Regulo] 0.6 mg SUBCUT DAILY 12/20/16 12/20/16 History Lisinopril 20 mg PO DAILY 12/20/16 12/20/16 History Allergies Allergy/AdvReac Type Severity Reaction Status Date / Time No Known Allergies Allergy Unverified 12/20/16 04:39 Medical,Surgical,& Family Hx - Medical History Cardio: History of: Hypertension Neurology: History of: Seizures HEENT: History of: Eye Problem Endocrine: History of: Diabetes Mellitus (NIDDM) Respiratory: History of: Bronchitis Genitourinary: History of: Kidney Stones Gastrointestinal: History of: GERD Hematology: History of: Anemia No history of: Blood Transfusion Reaction - Surgical History Thoracic Surgeries: Surgical HX of;: Lithotripsy Patient denies;: Lobectomy HEENT Surgeries: Surgical HX of: Tonsilectomy & Adenoidectomy Patient denies: Eye Surgery, Thyroid Surgery Abdominal Surgeries: Surgical HX of: Colonoscopy Reproductive Surgeries: Surgical HX of;: Section Orthopedic Surgeries: Surgical HX of;: Orthopedic Surgery, Spinal Surgery (one at 17 years old and one at 37 to remove scar tissue) - Family History Family History: Reports;: Family Cancer, Family Diabetes, Additional Family History - Social History Smoking Status: Never smoker Frequency of Alcohol Use: None Type of Drug Use: None Exam - Constitutional Vitals: Period Temp Pulse Resp BP Sys/Morrissey Pulse Ox Last 24 Hr 98.4 F-99.6 F 77-85 18-20 130-144/63-70 94-98 Results - Labs CBC & BMP: 12/23/16 Unknown 12/23/16 Unknown Quality Measures - Stroke Symptom Onset Unknown: No
[2016-12-23] MEDS: URSODIOL 300 MG CAPSULE PO SCH ×2 (09:38→21:47)
--- NOTE | 2016-12-23 10:30 | Hospitalist Progress Note ---
Assessment and Plan - Time spent with patient Time spent with patient: Greater than 30 minutes (1) Cholecystitis Status: Acute Assessment and plan: Surgery on board, continue zosyn. Defer to them. Current Visit: Yes (2) Choledocholithiasis Status: Acute Assessment and plan: ERCP successful. Current Visit: Yes (3) Diabetes Status: Acute Assessment and plan: SSI. Current Visit: Yes (4) Cirrhosis Status: Acute Assessment and plan: GI on board. Platelets stable. Current Visit: Yes Hospitalist: Subjective Interval history: Reports epigastric/RUQ postprandial abdominal pain. Tmax 99.6. Exam - Constitutional Vitals: Period Temp Pulse Resp BP Sys/Morrissey Pulse Ox Last 24 Hr 98.4 F-99.6 F 77-85 18-20 130-144/63-70 94-98 General appearance: no acute distress - Head Head exam: Present: normocephalic, atraumatic - Eye Eye exam: Present: EOMI Pupils: Present: TUCKER - ENT ENT exam: Present: normal exam - Neck Neck exam: Present: normal inspection - Respiratory Respiratory exam: Present: clear to auscultation bilaterally. Absent: rhonchi, wheezes - Cardiovascular Cardiovascular exam: Present: regular rate and rhythm. Absent: gallop, rubs, systolic murmur - GI/Abdominal GI/Abdominal exam: Present: normal bowel sounds, tenderness, soft. Absent: distended, firm, guarding, rebound - Extremities Exam Extremities exam: Present: normal inspection. Absent: calf tenderness, edema Results - Labs CBC & BMP: 12/23/16 Unknown 12/23/16 Unknown Lab Results: I have reviewed the past 24 hour labs Quality Measures - Stroke Symptom Onset Unknown: No
--- NOTE | 2016-12-23 11:17 | Gastrointestinal Progress Note ---
Assessment and Plan (1) Choledocholithiasis Status: Acute Assessment and plan: 12/23-abdominal pain continues postprandial. Mild nausea. LFTs trending downward. Plan an addendum to followed by Dr. Interiano. 12/22-Abd pain improved, no N/V. Tolerating diet. ERCP findings noted. Serology workup noted. Plan and addendum to follow by Dr Interiano. 12/20-One year history of abdominal pain, post prandial, with episodes of nausea and vomiting, worsening over the last several days. Findings on CT scan at outside facility of 4.4mm galstone at CBD within pancreatic head near sphincter of Emilio, distended gallbaldder with thickend wall and CBD at 1.6cm, splenomegaly. Elevated LFT in [place]. Labs pending at present time. Tentative ERCP for tomorrow. Start clear liquid diet. Plan and addendum to follow by Dr Interiano. Current Visit: Yes Gastroenterology - PN: Subj Interval history: CC: Choledocholithiasis Patient is awake and alert sitting up in bed. States she is feeling about the same at this time. States every time she eats she has this dull aching pain in her epigastric region with nausea. Denies any vomiting. Abdomen is soft, mild tenderness. LFTs are noted to be trending downward at this time. ROS: Denies shortness of breath or chest pain Exam (Progress Note) - Constitutional Vitals: Period Temp Pulse Resp BP Sys/Morrissey Pulse Ox Last 24 Hr 98.4 F-99.6 F 75-85 18-20 130-144/63-70 94-98 - Other Additional findings: General appearance: normal weight, no acute distress - Head Head exam: Present: normal inspection, normocephalic - Eye Eye exam: Present: other (lids and conjunctiva unremarkable). Absent: scleral icterus - ENT ENT exam: Present: normal exam, normal oropharynx - Neck Neck exam: Present: normal inspection - Respiratory Respiratory exam: Present: clear to auscultation bilaterally. Absent: rales, rhonchi, wheezes - Cardiovascular Cardiovascular exam: Present: regular rate and rhythm. Absent: diastolic murmur , JVD, systolic murmur - GI/Abdominal GI/Abdominal exam: Present: normal bowel sounds, soft. Absent: ascites, distended, mass, organomegaly, tenderness - Extremities Exam Extremities exam: Present: normal inspection, full ROM - Back Exam Back exam: Present: normal inspection - Neurological Exam Neurological exam: Present: alert, oriented X3 - Psychiatric Psychiatric exam: Present: normal affect, normal mood - Skin Skin exam: Present: normal color, warm, dry Results - Labs CBC & BMP: 12/23/16 Unknown 12/23/16 Unknown Lab Results: I have reviewed the past 24 hour labs
[2016-12-23] MEDS: SODIUM CHLOR 0.45% KCL 20 MEQ 20 MEQ/1,000 ML BAG IV SCH ×2 (13:24→20:31)
--- NOTE | 2016-12-23 19:06 | Event Note ---
The patient's lipase level was normal today and she continues to have fairly severe abdominal pain with nausea after trying to eat anything. I have discussed the case with Dr. Interiano in detail. Because she is not having pancreatitis, it seems most likely that she is having symptoms related to her gallstones in gallbladder. Because of the high risk situation of any sort of general anesthesia and intra-abdominal surgery, we will proceed with a cholecystostomy tube drainage as the next step in her management to reduce the risk of intervention on her liver and portal hypertension. This was discussed in detail with the patient and we will proceed with operative scheduling for a cholecystostomy tube tomorrow.
[2016-12-24 00:20] LABS: Apearance,Urine CLEAR (Clear); Bilirubin,Urine Negative (Negative); Blood, Urine Negative (Negative); Glucose,Urine (UA) Negative (Negative); Ketones,Urine Negative (Negative); Nitrite,Urine Negative (Negative); Protein,Urine Negative; RBC,Urine 1 /HPF (0-4); Squamous Epithelial Cell,Urine Occasional /HPF (0-10); Urine Color Yellow (Yellow); Urine Specific Gravity 1.006 (1.001-1.035); WBC,Urine <1 /HPF (0-6)
[2016-12-24] MEDS: PIPERACILLIN/TAZOBACTAM 3,375 MG in SODIUM CHLORIDE 0.9% 100 ML IV SCH ×3 (04:56→21:14)
[2016-12-24] MEDS: INSULIN REGULAR 100 UNIT/ML SUBCUT SCH ×3 (04:59→22:25)
[2016-12-24 05:21] LABS: Basophils % 0.3 % (0.0-0.8); Eosinophils # 0.1 10*3/uL (0.0-0.87); Eosinophils % 2.7 % (0.00-10.9); Hematocrit 36.9 VOL% (35.7-47.0); Hemoglobin 12.4 GM/DL (12.0-16.0); Lymphocytes # 1.2 10*3/uL (1.4-4.0); Lymphocytes % 41.6 % (21.3-54.2); Mean Corpuscular HGB Conc 33.6 GM/DL (32-36); Mean Corpuscular Hemoglobin 31 PG (27-34); Mean Corpuscular Volume 91.1 FL (87-102); Mean Platelet Volume 11.9 FL (9.6-12.0); Monocytes # 0.5 10*3/uL (0.11-0.8); Monocytes % 18.2 % (1.7-12.7); Neutrophils # 1.1 10*3/uL (1.4-7.4); Neutrophils % 37.2 % (38.7-73.9); Platelet Count 73 T/CUMM (130-400); Red Blood Count 4.05 MC/CUMM (3.8-5.5); Red Cell Distribution Width 16.9 % (9.3-17.3); White Blood Count 2.9 T/CUMM (4-12)
[2016-12-24 05:27] LABS: INR 1.4; PT Patient Result 15.4 SECS
[2016-12-24 05:46] LABS: Lymphocytes 47 % (20-55); Metamyelocytes 1 %; Segmented Neutrophils 33 % (50-85); Total Cells Counted 100
[2016-12-24 05:47] LABS: Hypochromasia 1+; Microcytosis 1+; Platelet Estimate Decreased
[2016-12-24 05:51] LABS: Calcium 7.5 MG/DL (8.5-10.1)
[2016-12-24 05:52] LABS: Osmolality,Calculated 282.8 MOS/KG (273-304); Potassium 3.7 MMOL/L (3.5-5.1)
[2016-12-24] MEDS ORDERED: MIDAZOLAM 2 MG/2 ML VIAL IV ONE (08:21)
[2016-12-24] MEDS ORDERED: DIAZEPAM 5 MG TABLET PO ONE (08:21)
[2016-12-24] MEDS ORDERED: fentaNYL 100 MCG/2 ML VIAL IV ONE (08:21)
--- NOTE | 2016-12-24 08:48 | IR History and Physical Update ---
IR Pre-Procedure - History and Physical H&P was reviewed, the patient examined and there: are no changes in the patients condition since last H&P was completed. Reason for procedure:: 56-year-old female with acute cholecystitis and cholelithiasis, continued symptoms despite several days of antibiotic therapy. Poor operative candidate due to underlying liver disease. Surgery requesting percutaneous cholecystostomy. - Dictation Physical: refer to H&P completed by admitting physician - Physical Exam Vital Signs: Last Vital Signs Temp 98.8 F 12/24/16 04:00 Pulse 82 12/24/16 04:00 Resp 18 12/24/16 04:00 BP 131/66 12/24/16 04:00 Pulse Ox 95 12/24/16 04:00 Mental Status: alert and oriented - Sedation IR anesthesia plan for sedation: minimal ASA Class: II - Risks Risks: Procedures explained. Risks discussed include, but not limited to, the following:[ Bile leak, infection, additional procedures] All questions answered. The following alternatives were discussed:[ None] Risks and benefits discussed with: patient Consent obtained from: patient Assessment and Plan - Time spent with patient Time spent with patient: Less than 30 minutes (1) Cholecystitis Status: Acute Assessment and plan: Assessment: Continued cholecystitis. Plan: Percutaneous cholecystostomy. Current Visit: Yes
[2016-12-24] MEDS: SODIUM CHLORIDE 0.45% 1,000 ML IV SCH (09:07)
[2016-12-24] MEDS ORDERED: fentaNYL 100 MCG/2 ML VIAL ONE (09:46)
[2016-12-24] MEDS ORDERED: MIDAZOLAM 2 MG/2 ML VIAL ONE (09:47)
--- NOTE | 2016-12-24 10:14 | Hospitalist Progress Note ---
Assessment and Plan - Time spent with patient Time spent with patient: Greater than 30 minutes (1) Cholecystitis Status: Acute Assessment and plan: Percutaneous cholecystostomy tube placement pending. Current Visit: Yes (2) Choledocholithiasis Status: Acute Assessment and plan: ERCP successful. Current Visit: Yes (3) Diabetes Status: Acute Assessment and plan: SSI. Current Visit: Yes (4) Cirrhosis Status: Acute Assessment and plan: GI on board. Platelets stable. Current Visit: Yes (5) Fever Status: Acute Assessment and plan: Cxray. UA. Current Visit: Yes Hospitalist: Subjective Interval history: 101.3 fever overnight. Bld Cx pending from 06/24. Currently scheduled for percutaneously cholecystostomy tube. Exam - Constitutional Vitals: Period Temp Pulse Resp BP Sys/Morrissey Pulse Ox Last 24 Hr 97.9 F-101.3 F 77-92 16-20 125-150/63-79 93-96 General appearance: no acute distress - Head Head exam: Present: normocephalic, atraumatic - Eye Eye exam: Present: EOMI Pupils: Present: TUCKER - ENT ENT exam: Present: normal exam - Neck Neck exam: Present: normal inspection - Respiratory Respiratory exam: Present: clear to auscultation bilaterally. Absent: rhonchi, wheezes - Cardiovascular Cardiovascular exam: Present: regular rate and rhythm. Absent: gallop, rubs, systolic murmur - GI/Abdominal GI/Abdominal exam: Present: normal bowel sounds, tenderness, soft. Absent: distended, firm, guarding, rebound - Extremities Exam Extremities exam: Present: normal inspection. Absent: calf tenderness, edema Results - Labs CBC & BMP: 12/24/16 04:31 12/24/16 04:31 Lab Results: I have reviewed the past 24 hour labs Quality Measures - Stroke Symptom Onset Unknown: No
[2016-12-24] MEDS ORDERED: ONDANSETRON 4 MG/2 ML VIAL ONE (10:16)
--- NOTE | 2016-12-24 10:25 | Post Interventional Procedure ---
Pre-op diagnosis: Cholecystitis Post-op diagnosis: same Procedure: Perc cholecystostomy Contrast: 0 Flouroscopy: 0 Radiologist: Luis Rios Anesthesia: local, conscious sedation Medications: Versed 2 mg, fentanyl 100 mcg, Zofran 4 mg Specimens: none sent Estimated blood loss: none Complications: none Condition: stable Description/Findings: 8 Fr pigtail drain in GB Assessment and Plan - Time spent with patient Time spent with patient: Less than 30 minutes (1) Cholecystitis Status: Acute Assessment and plan: Assessment: Continued cholecystitis. Plan: Percutaneous cholecystostomy. Post Procedure: Suction drainage of GB. Pain control. Current Visit: Yes
--- NOTE | 2016-12-24 10:51 | General Surgery Progress Note ---
Assessment and Plan (1) Choledocholithiasis Status: Acute Assessment and plan: This patient was admitted with cholecystitis and choledocholithiasis. An ERCP with sphincterotomy and stone retrieval was performed and the cystic duct was patent on this study so we attempted ursodiol and conservative management with antibiotics. The patient failed this treatment regimen but because of her severe medical comorbidities with cirrhosis and severe portal hypertension with esophageal varices and splenomegaly, we recommended percutaneous cholecystostomy tube which has been placed since I saw the patient this morning and looks like it was successful. This will be continued over the weekend we will continue to follow the patient. Current Visit: Yes Subjective Patient reports: Present: no new complaints, still having pain, nausea, fever Narrative: The patient was febrile overnight and continues to have severe right upper quadrant abdominal pain with nausea. Exam - Constitutional Vitals: Period Temp Pulse Resp BP Sys/Morrissey Pulse Ox Last 24 Hr 97.9 F-101.3 F 77-92 16-20 125-161/63-91 93-98 General appearance: no acute distress, over weight - Head Head exam: Present: normal inspection, normocephalic - Eye Eye exam: Present: EOMI Pupils: Present: TUCKER - ENT ENT exam: Present: normal exam Mouth exam: Present: normal external inspection, normal voice - Neck Neck exam: Present: normal inspection, trachea midline - Respiratory Respiratory exam: Present: clear to auscultation bilaterally. Absent: accessory muscle use, chest wall tenderness - Cardiovascular Cardiovascular exam: Present: RRR. Absent: systolic murmur, tachycardia - GI/Abdominal GI/Abdominal exam: Present: normal bowel sounds, Baires's sign, tenderness, soft. Absent: rebound - Extremities Exam Extremities exam: Present: normal inspection, normal capillary refill - Back Exam Back exam: Present: normal inspection - Neurological Exam Neurological exam: Present: alert, oriented X3 Speech: Present: normal - Skin Skin exam: Present: normal color, warm Results - Labs CBC & BMP: 12/24/16 04:31 12/24/16 04:31 Quality Measures - Stroke Symptom Onset Unknown: No
--- NOTE | 2016-12-24 11:02 | Interventional Radiology Rpt ---
IR cholecystostomy complete Indication: Acute cholecystitis, unresolved after antibiotic therapy. High-risk for surgery due to cirrhosis and underlying coagulopathy. Percutaneous cholecystostomy Description: A formal timeout was performed. Maximum sterile barrier technique was instituted. Ultrasound evaluation shows the gallbladder high in the right upper quadrant, with diffuse gallbladder wall thickening and ascites adjacent to the gallbladder lumen. Gallbladder is free floating in the ascites, from the liver parenchyma. An AccuStick needle was advanced into the gallbladder lumen through the fundus using sonographic guidance. A catheter sonographic image documents position of the needle. However, when attempts were made to advance the 8 Canadian sheath over the wire, the fundus of the gallbladder repeatedly collapsed into itself with the pressure of the sheath. After 3 attempts, the needle and wire were removed. At this point, an 8 Canadian pigtail drain catheter was advanced using trocar technique into the fundus of the gallbladder, also under some graphic guidance. A catheter sonographic image documented the second puncture. The gallbladder fundus collapsed again upon itself, but with modest effort, the tube was advanced into the gallbladder lumen. The needle and stylet were removed, and the pigtail was formed in the lumen. A captured sonographic image documents the position near the gallbladder neck. Bile was aspirated. The tube was secured with a Percu-Stay device and connected to a suction bag. Patient tolerated the procedure well and was transferred to the floor in stable condition. Contrast: None. Fluoroscopy: None. Conscious sedation: Under physician supervision, Versed 2 mg, fentanyl 100 mcg, Zofran 4 mg were administered intravenously for conscious sedation. Vital signs, including pulse oximetry, heart rate and blood pressure, continuously monitored by nursing present in the room. Physicians spent 30 minutes [id number] sedation time with the patient. Impression: Successful placement of 8 Canadian pigtail drain catheter in the gallbladder lumen through the gallbladder fundus. No transhepatic approach present due to gallbladder free floating within the ascites. Please note the ascites is limited to the pericholecystic region. PROCEDURE INTERPRETED AT [facility] DEPARTMENT OF RADIOLOGY Final Report Signed by: Luis Rios M.D.
--- NOTE | 2016-12-24 11:05 | Gastrointestinal Progress Note ---
Assessment and Plan (1) Choledocholithiasis Status: Acute Assessment and plan: 12/24-Post percutaneous cholecystostomy tube placement today. Febrile overnight. Blood cultures pending. Plan and addendum to follow by Dr Interiano. 12/23-abdominal pain continues postprandial. Mild nausea. LFTs trending downward. Plan an addendum to followed by Dr. Interiano. 12/22-Abd pain improved, no N/V. Tolerating diet. ERCP findings noted. Serology workup noted. Plan and addendum to follow by Dr Interiano. 12/20-One year history of abdominal pain, post prandial, with episodes of nausea and vomiting, worsening over the last several days. Findings on CT scan at outside facility of 4.4mm galstone at CBD within pancreatic head near sphincter of Emilio, distended gallbaldder with thickend wall and CBD at 1.6cm, splenomegaly. Elevated LFT in [place]. Labs pending at present time. Tentative ERCP for tomorrow. Start clear liquid diet. Plan and addendum to follow by Dr Interiano. Current Visit: Yes Gastroenterology - PN: Subj Interval history: CC: Choledocholithiasis Pt is seen post percutaneous cholecystostomy tube placement this morning. She is still under the effects of her sedation however denies any pain at present time. Abdomen is soft, mild tenderness. Noted to be febrile overnight. Blood cultures are pending at present time. ROS: Denies SOB or chest pain Exam (Progress Note) - Constitutional Vitals: Period Temp Pulse Resp BP Sys/Morrissey Pulse Ox Last 24 Hr 97.9 F-101.3 F 77-92 16-20 125-161/63-91 93-98 General appearance: normal weight, no acute distress - Head Head exam: Present: normal inspection, normocephalic - Eye Eye exam: Present: other (lids and conjunctiva unremarkable). Absent: scleral icterus - ENT ENT exam: Present: normal exam, normal oropharynx - Neck Neck exam: Present: normal inspection - Respiratory Respiratory exam: Present: clear to auscultation bilaterally. Absent: rales, rhonchi, wheezes - Cardiovascular Cardiovascular exam: Present: regular rate and rhythm. Absent: diastolic murmur , JVD, systolic murmur - GI/Abdominal GI/Abdominal exam: Present: normal bowel sounds, soft. Absent: ascites, distended, mass, organomegaly, tenderness - Extremities Exam Extremities exam: Present: normal inspection, full ROM - Back Exam Back exam: Present: normal inspection - Neurological Exam Neurological exam: Present: alert, oriented X3 - Psychiatric Psychiatric exam: Present: normal affect, normal mood - Skin Skin exam: Present: normal color, warm, dry - Other Additional findings: General appearance: normal weight, no acute distress - Head Head exam: Present: normal inspection, normocephalic - Eye Eye exam: Present: other (lids and conjunctiva unremarkable). Absent: scleral icterus - ENT ENT exam: Present: normal exam, normal oropharynx - Neck Neck exam: Present: normal inspection - Respiratory Respiratory exam: Present: clear to auscultation bilaterally. Absent: rales, rhonchi, wheezes - Cardiovascular Cardiovascular exam: Present: regular rate and rhythm. Absent: diastolic murmur , JVD, systolic murmur - GI/Abdominal GI/Abdominal exam: Present: normal bowel sounds, soft. Absent: ascites, distended, mass, organomegaly, tenderness - Extremities Exam Extremities exam: Present: normal inspection, full ROM - Back Exam Back exam: Present: normal inspection - Neurological Exam Neurological exam: Present: alert, oriented X3 - Psychiatric Psychiatric exam: Present: normal affect, normal mood - Skin Skin exam: Present: normal color, warm, dry Results - Labs CBC & BMP: 12/24/16 04:31 12/24/16 04:31 Lab Results: I have reviewed the past 24 hour labs
--- NOTE | 2016-12-24 12:36 | XRay Report ---
XR chest 1V portable Indication: Fever. Chest one view: No comparison. Heart size and mediastinal contour are normal. There is diffuse moderate parabronchial thickening present. No focal infiltrates are shown. Pleural spaces are clear. Bones are intact. Impression: Moderate airways disease such as bronchitis or viral syndrome. No focal pneumonia. PROCEDURE INTERPRETED AT [facility] DEPARTMENT OF RADIOLOGY Final Report Signed by: Luis Rios M.D.
[2016-12-24] MEDS: URSODIOL 300 MG CAPSULE PO SCH ×2 (13:20→21:14)
[2016-12-24] MEDS: PROPRANOLOL 20 MG TABLET PO SCH (21:14)
[2016-12-25] MEDS: INSULIN REGULAR 100 UNIT/ML SUBCUT SCH ×5 (00:15→23:52)
[2016-12-25] MEDS: SODIUM CHLOR 0.45% KCL 20 MEQ 20 MEQ/1,000 ML BAG IV SCH ×3 (06:08→20:03)
[2016-12-25] MEDS: PIPERACILLIN/TAZOBACTAM 3,375 MG in SODIUM CHLORIDE 0.9% 100 ML IV SCH ×3 (06:09→20:39)
--- NOTE | 2016-12-25 09:41 | Gastrointestinal Progress Note ---
Assessment and Plan - Time spent with patient Time spent with patient: Greater than 30 minutes (1) Choledocholithiasis Status: Acute Current Visit: Yes (2) Cholecystitis Status: Acute Current Visit: Yes (3) Cirrhosis Status: Acute Current Visit: Yes (4) Other specified counseling Status: Acute Current Visit: Yes Exam (Progress Note) - Constitutional Vitals: Period Temp Pulse Resp BP Sys/Morrissey Pulse Ox Last 24 Hr 98.6 F-99.2 F 73-88 16-20 125-161/67-91 93-98 Results - Labs CBC & BMP: 12/24/16 04:31 12/24/16 04:31 Note Addendum: PLEASE NOTE -- automatic citation of patient information is unavoidable in this electronic note. I have made a reasonable effort to review the information cited , but it is not a part of my evaluation, impression, or recommendation unless specifically discussed in the dictated text that follows. As well, voice recognition software was used in the creation of this clinical note. Reasonable effort was made to identify and correct gross errors. Despite proofreading, errors in dynamometer tester engine may be present, including nonsense verbiage at times. If you encounter such an error, please contact me at [phone] for discussion and correction. -- Erica Chief complaint: choledocholithiasis Subjective: the patient is a 56-year-old female seen for follow-up of choledocholithiasis. The patient underwent ERCP on December 21 with finding of choledocholithiasis and successful treatment of same. Incidental notation was also made of grade II esophageal varices. Since that examination, the patient has improved in terms of abdominal pain but, because of high risk associated with cholecystectomy, has now had a cholecystostomy tube placed. Liver associated enzymes have improved and the patient has been able to tolerate a diet. She does report that the percutaneous site is uncomfortable. Medications: insulin, morphine, Zofran, Zosyn, Inderal, actigall Review of Symptoms: 12 point review of symptoms was negative except as noted above Physical examination: Vital Signs: Current vital signs reviewed. General Appearance: lying in bed. Comfortable. No apparent distress. Head: Normocephalic. Eyes: no scleral icterus. No scleral injection. No conjunctival pallor. Oral Cavity: Odor of breath was normal. No drooling was observed. Lips showed no abnormalities. Lungs: Respiration rhythm and depth was normal. Cardiovascular: Heart rate and rhythm were normal. Abdomen: abdomen was not distended. Abdominal auscultation revealed no abnormalities. Ascites was not discovered. Abdominal palpation revealed no tenderness. A percutaneous code assist us was in place at the right flank with clear green drainage in the appliance. Musculoskeletal System: musculoskeletal system was grossly normal. Neurological: level of consciousness was normal. Speech was normal. No coordination/cerebellum abnormalities were noted. Skin: Gen. appearance was normal. Color and pigmentation were normal. No skin lesions were appreciated. Laboratory: white blood count 2.9, hemoglobin 12.4, hematocrit 36.9, platelets 73, INR 1.4, PT 15.4, ALT 46, AST 82, alkaline phosphatase 163, lipase 239 Radiology: -- Right Upper Quadrant Ultrasound, December 20, 2016 -- cholelithiasis with gallbladder wall thickening and pericholecystic fluid; slightly nodular liver contour; prominent common bile duct Impressions: 1. Choledocholithiasis -- the common bile duct has been cleared and the gallbladder has now been decompressed with cholecystitis. The patient is improving in terms of liver associated enzymes numbers as well as appetite. I recommend continued antibiotic and monitoring with surgical intervention at the discretion of the general surgery service. 2. Cholecystitis -- the gallbladder is currently decompressed as discussed above. Further management in this regard will be at the discretion of the general surgery service. 3. Cirrhosis -- the patient has evidence of nodular liver, esophageal varices, and thrombocytopenia. While not formally diagnosed with cirrhosis, it seems very likely that is the case. 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 I recommend aggressive volume and electrolyte management, and minimization of potentially hepatotoxic medications to whatever extent possible, and supportive care for now. The patient will need outpatient gastroenterology follow-up for continued management of this problem. 4. Patient Counseling: Medical Management: Patient seen for greater than 30 minutes. Greater than 50% of this time was spent counseling regarding differential diagnosis, likely diagnosis,, diagnostic and therapeutic options, risks, benefits, and alternatives to procedures and medications, informed consent, and plan of care generally. Patient has expressed understanding and wishes to proceed. Recommendations: -- continued percutaneous drainage -- continued antibiotic -- aggressive volume, glucose, and electrolyte control -- minimization of potentially hepatotoxicity medications to the greatest extent possible -- follow-up in outpatient gastroenterology clinic for further evaluation and management of probable cirrhosis -- we will continue to follow with you
[2016-12-25] MEDS: MORPHINE 2 MG/1 ML SYRINGE IV PRN (10:18)
[2016-12-25] MEDS: URSODIOL 300 MG CAPSULE PO SCH ×2 (10:18→20:39)
[2016-12-25] MEDS: PROPRANOLOL 20 MG TABLET PO SCH ×2 (10:18→20:39)
--- NOTE | 2016-12-25 10:50 | Hospitalist Progress Note ---
Assessment and Plan - Time spent with patient Time spent with patient: Greater than 30 minutes (1) Cholecystitis Status: Acute Assessment and plan: Percutaneous cholecystostomy tube placed. Current Visit: Yes (2) Choledocholithiasis Status: Acute Assessment and plan: ERCP successful. Current Visit: Yes (3) Diabetes Status: Acute Assessment and plan: SSI. Current Visit: Yes (4) Cirrhosis Status: Acute Assessment and plan: GI on board. Platelets stable. Current Visit: Yes (5) Fever Status: Acute Assessment and plan: Workup negative. Continue antibiotics for acute cholecystitis. Current Visit: Yes Hospitalist: Subjective Interval history: Status post percutaneous cholecystostomy tube yesterday. Currently states is sore around the site. Drainage is adequate and serosanguineous. Exam - Constitutional Vitals: Period Temp Pulse Resp BP Sys/Morris[place] Pulse Ox Last 24 Hr 98.6 F-99.2 F 73-88 16-20 130-146/73-80 94-96 General appearance: no acute distress - Head Head exam: Present: normocephalic, atraumatic - Eye Eye exam: Present: EOMI Pupils: Present: TUCKER - ENT ENT exam: Present: normal exam - Neck Neck exam: Present: normal inspection - Respiratory Respiratory exam: Present: clear to auscultation bilaterally. Absent: rhonchi, wheezes - Cardiovascular Cardiovascular exam: Present: regular rate and rhythm. Absent: gallop, rubs, systolic murmur - GI/Abdominal GI/Abdominal exam: Present: normal bowel sounds, tenderness, soft, other ( Percutaneous cholecystostomy tube right upper quadrant). Absent: distended, firm, guarding, rebound - Extremities Exam Extremities exam: Present: normal inspection. Absent: calf tenderness, edema Results - Labs CBC & BMP: 12/24/16 04:31 12/24/16 04:31 Lab Results: I have reviewed the past 24 hour labs Quality Measures - Stroke Symptom Onset Unknown: No
--- NOTE | 2016-12-25 11:04 | Event Note ---
She feels better. Pain that she had from her gallbladder preprocedure is much better. She does have some pain at the drain site as expected. She is leaking some ascites around the drain. This is not very much. Her abdomen appears benign and she is awake and alert. Continue with drainage and medical conservative treatment of her gallbladder for now.
[2016-12-25] MEDS: SODIUM CHLORIDE 0.45% 1,000 ML IV SCH (20:01)
[2016-12-26] MEDS: SODIUM CHLOR 0.45% KCL 20 MEQ 20 MEQ/1,000 ML BAG IV SCH ×3 (01:41→21:31)
[2016-12-26] MEDS: PIPERACILLIN/TAZOBACTAM 3,375 MG in SODIUM CHLORIDE 0.9% 100 ML IV SCH ×3 (04:19→21:37)
[2016-12-26 06:20] LABS: Basophils % 0.5 % (0.0-0.8); Eosinophils # 0.1 10*3/uL (0.0-0.87); Eosinophils % 2.6 % (0.00-10.9); Hemoglobin 13.1 GM/DL (12.0-16.0); Lymphocytes # 1.5 10*3/uL (1.4-4.0); Lymphocytes % 38.4 % (21.3-54.2); Mean Corpuscular HGB Conc 32.8 GM/DL (32-36); Mean Corpuscular Hemoglobin 30 PG (27-34); Mean Corpuscular Volume 91.7 FL (87-102); Mean Platelet Volume 11.6 FL (9.6-12.0); Monocytes # 0.8 10*3/uL (0.11-0.8); Monocytes % 21.7 % (1.7-12.7); Neutrophils # 1.4 10*3/uL (1.4-7.4); Neutrophils % 36.8 % (38.7-73.9); Platelet Count 83 T/CUMM (130-400); Red Blood Count 4.36 MC/CUMM (3.8-5.5); Red Cell Distribution Width 17.5 % (9.3-17.3); White Blood Count 3.8 T/CUMM (4-12)
[2016-12-26] MEDS: INSULIN REGULAR 100 UNIT/ML SUBCUT SCH ×4 (06:21→23:40)
[2016-12-26 06:43] LABS: Calcium 8.1 MG/DL (8.5-10.1); Osmolality,Calculated 279.3 MOS/KG (273-304); Potassium 4.4 MMOL/L (3.5-5.1)
--- NOTE | 2016-12-26 06:45 | Gastrointestinal Progress Note ---
Assessment and Plan (1) Choledocholithiasis Status: Acute Current Visit: Yes (2) Cholecystitis Status: Acute Current Visit: Yes (3) Cirrhosis Status: Acute Current Visit: Yes (4) Other specified counseling Status: Acute Current Visit: Yes Exam (Progress Note) - Constitutional Vitals: Period Temp Pulse Resp BP Sys/Morrissey Pulse Ox Last 24 Hr 98.4 F-99.8 F 67-75 20-20 109-156/60-76 96-98 Results - Labs CBC & BMP: 12/26/16 05:59 12/26/16 05:59 Note Addendum: DRAFT PLEASE NOTE -- automatic citation of patient information is unavoidable in this electronic note. I have made a reasonable effort to review the information cited , but it is not a part of my evaluation, impression, or recommendation unless specifically discussed in the dictated text that follows. As well, voice recognition software was used in the creation of this clinical note. Reasonable effort was made to identify and correct gross errors. 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 If you encounter such an error, please contact me at for discussion and correction. -- Erica Chief complaint: choledocholithiasis Subjective: the patient is a 56-year-old female seen for follow-up of choledocholithiasis. The patient reports continued discomfort at the site of drainage but her overall abdominal pain is improving. She has had three loose bowel movements since yesterday, one very large, without blood, mucous, or pus. Medications: insulin, morphine, Zofran, Zosyn, Inderal, actigall Review of Symptoms: 12 point review of symptoms was negative except as noted above Physical examination: Vital Signs: Current vital signs reviewed. General Appearance: lying in bed. Comfortable. No apparent distress. Head: Normocephalic. Eyes: no scleral icterus. No scleral injection. No conjunctival pallor. Oral Cavity: Odor of breath was normal. No drooling was observed. Lips showed no abnormalities. Lungs: Respiration rhythm and depth was normal. Cardiovascular: Heart rate and rhythm were normal. Abdomen: abdomen was not distended. Abdominal auscultation revealed no abnormalities. Ascites was not discovered. Abdominal palpation revealed no tenderness. A percutaneous code assist us was in place at the right flank with clear green drainage in the appliance. Musculoskeletal System: musculoskeletal system was grossly normal. Neurological: level of consciousness was normal. Speech was normal. No coordination/cerebellum abnormalities were noted. Skin: Gen. appearance was normal. Color and pigmentation were normal. No skin lesions were appreciated. Laboratory: White blood count 3.8, hemoglobin 13.1, hematocrit 40.0, platelets 83 Radiology: -- Right Upper Quadrant Ultrasound, December 20, 2016 -- cholelithiasis with gallbladder wall thickening and pericholecystic fluid; slightly nodular liver contour; prominent common bile duct Impressions: 1. Choledocholithiasis -- The patient is improving in terms of liver associated enzyme numbers as well as appetite. I recommend continued antibiotic and monitoring with surgical intervention at the discretion of the general surgery service. 2. Cholecystitis -- the gallbladder is currently decompressed as discussed above. Further management in this regard will be at the discretion of the general surgery service. 3. Diarrhea -- the patient may just be resuming normal gut function but she is on antibiotic and hospitalized, therefore at risk for C.diff. If diarrhea continues, we should screen her for same. 4. Cirrhosis -- I recommend continued supportive care for now. The patient will need outpatient gastroenterology follow-up for continued management of this problem. 4. Patient Counseling: Medical Management: Patient seen for more than 30 minutes. Greater than 50% of this time was spent counseling regarding differential diagnosis, likely diagnosis,, diagnostic and therapeutic options, risks, benefits, and alternatives to procedures and medications, informed consent, and plan of care generally. Patient has expressed understanding and wishes to proceed. Recommendations: -- continued percutaneous drainage -- continued antibiotic -- aggressive volume, glucose, and electrolyte control -- minimization of potentially hepatotoxic medications to the greatest extent possible -- screen for C.diff if diarrhea continues -- follow-up in outpatient gastroenterology clinic for further evaluation and management of probable cirrhosis -- we will continue to follow with you. Dr. Interiano will assume GI care for this patient tomorrow.
--- NOTE | 2016-12-26 09:00 | Hospitalist Progress Note ---
Assessment and Plan - Time spent with patient Time spent with patient: Greater than 30 minutes (1) Cholecystitis Status: Acute Assessment and plan: Percutaneous cholecystostomy tube placed. Current Visit: Yes (2) Choledocholithiasis Status: Acute Assessment and plan: ERCP successful. Current Visit: Yes (3) Diabetes Status: Acute Assessment and plan: SSI. Current Visit: Yes (4) Cirrhosis Status: Acute Assessment and plan: GI on board. Platelets stable. Current Visit: Yes (5) Fever Status: Acute Assessment and plan: Workup negative. Continue antibiotics for acute cholecystitis. Current Visit: Yes Hospitalist: Subjective Interval history: No complaints, no overnight events. Exam - Constitutional Vitals: Period Temp Pulse Resp BP Sys/[place]ris[place] Pulse Ox Last 24 Hr 98.5 F-99.8 F 68-75 20-20 109-156/60-76 96-98 General appearance: no acute distress - Head Head exam: Present: normocephalic, atraumatic - Eye Eye exam: Present: EOMI Pupils: Present: TUCKER - ENT ENT exam: Present: normal exam - Neck Neck exam: Present: normal inspection - Respiratory Respiratory exam: Present: clear to auscultation bilaterally. Absent: rhonchi, wheezes - Cardiovascular Cardiovascular exam: Present: regular rate and rhythm. Absent: gallop, rubs, systolic murmur - GI/Abdominal GI/Abdominal exam: Present: normal bowel sounds, soft. Absent: distended, firm , guarding, tenderness, rebound - Extremities Exam Extremities exam: Present: normal inspection. Absent: calf tenderness, edema Results - Labs CBC & BMP: 12/26/16 05:59 12/26/16 05:59 Lab Results: I have reviewed the past 24 hour labs Quality Measures - Stroke Symptom Onset Unknown: No
--- NOTE | 2016-12-26 10:27 | General Surgery Progress Note ---
Assessment and Plan (1) Cholecystitis Status: Acute Assessment and plan: She feels better and appears to gotten good symptomatic relief from the percutaneous drainage. She had some ascites leaking around her drain yesterday but this appears to have stopped. Current Visit: Yes Subjective Patient reports: Present: feels better, pain is less, nausea, afebrile. Absent : vomiting, shortness of breath Exam - Constitutional Vitals: Period Temp Pulse Resp BP Sys/[place]ris[place] Pulse Ox Last 24 Hr 98.5 F-99.8 F 68-75 20-20 109-156/60-76 96-98 General appearance: no acute distress - Respiratory Respiratory exam: Absent: accessory muscle use - GI/Abdominal GI/Abdominal exam: Present: soft. Absent: distended, tenderness - Neurological Exam Neurological exam: Present: alert, oriented X3 Speech: Present: normal Results - Labs CBC & BMP: 12/26/16 05:59 12/26/16 05:59 Lab Results: I have reviewed the past 24 hour labs Quality Measures - Stroke Symptom Onset Unknown: No
[2016-12-26] MEDS: URSODIOL 300 MG CAPSULE PO SCH ×2 (10:53→21:32)
[2016-12-26] MEDS: PROPRANOLOL 20 MG TABLET PO SCH ×2 (10:53→21:32)
[2016-12-26] MEDS: MORPHINE 2 MG/1 ML SYRINGE IV PRN (21:32)
[2016-12-27] MEDS: PIPERACILLIN/TAZOBACTAM 3,375 MG in SODIUM CHLORIDE 0.9% 100 ML IV SCH (05:07)
[2016-12-27] MEDS: SODIUM CHLOR 0.45% KCL 20 MEQ 20 MEQ/1,000 ML BAG IV SCH ×2 (05:07→09:03)
[2016-12-27] MEDS: INSULIN REGULAR 100 UNIT/ML SUBCUT SCH ×2 (06:05→13:37)
--- NOTE | 2016-12-27 07:31 | General Surgery Progress Note ---
Assessment and Plan (1) Choledocholithiasis Status: Acute Assessment and plan: I will change the patient to oral antibiotics. She can go home with home health and follow-up with me in about 2 weeks for drain removal. Current Visit: Yes Subjective Patient reports: Present: no new complaints, feels better, still having pain, pain is less, tolerating a regular diet, afebrile Exam - Constitutional Vitals: Period Temp Pulse Resp BP Sys/[place] Pulse Ox Last 24 Hr 98.1 F-99.8 F 65-74 16-20 118-150/57-77 94-98 General appearance: no acute distress, over weight - Head Head exam: Present: normal inspection - Eye Eye exam: Absent: scleral icterus - ENT Mouth exam: Present: normal external inspection, normal voice - Respiratory Respiratory exam: Absent: accessory muscle use, prolonged expiratory phase - Cardiovascular Cardiovascular exam: Absent: tachycardia - GI/Abdominal GI/Abdominal exam: Present: tenderness (mild tenderness around pigtail catheter in gallbladder), soft, other (The drain quality is light yellow. There is about 250 cc of output in the last 24 hours.) - Extremities Exam Extremities exam: Present: normal inspection - Neurological Exam Neurological exam: Present: alert Speech: Present: normal - Skin Skin exam: Present: normal color, warm Results - Labs CBC & BMP: 12/26/16 05:59 12/26/16 05:59 Quality Measures - Stroke Symptom Onset Unknown: No
[2016-12-27] MEDS: PROPRANOLOL 20 MG TABLET PO SCH (08:42)
[2016-12-27] MEDS: URSODIOL 300 MG CAPSULE PO SCH (08:42)
[2016-12-27] MEDS ORDERED: CIPROFLOXACIN 500 MG TABLET PO SCH (09:00)
[2016-12-27] MEDS ORDERED: metroNIDAZOLE 500 MG TABLET PO SCH (09:00)
--- NOTE | 2016-12-27 09:26 | Discharge Summary ---
Hospital Course - Time spent with patient Time with patient DS: Greater than 30 minutes Diagnosis - Discharge Diagnosis (1) Cholecystitis Status: Acute (2) Choledocholithiasis Status: Acute (3) Diabetes Status: Acute (4) Cirrhosis Status: Acute (5) Fever Status: Acute Specialty Discharge - Follow Up or Referrals Follow up with: Julito Ag MD [Physician] - 2 Weeks (drain removal ) Discharge Plan - Discharge Data Disposition: Disch To Home/Self Care Condition at Discharge: Stable Discharge Diet: advance to your usual diet Activity: resume usual activities as tolerated - Discharge Medications New Ciprofloxacin Tab [Cipro Tab] 500 mg PO BID #20 tablet Propranolol Tab [Inderal Tab] 20 mg PO BID #60 tablet Ursodiol [Actigall] 300 mg PO BID #60 capsule metroNIDAZOLE TAB [Flagyl Cap/Tab] 500 mg PO TID #30 tablet HYDROcodone/ACETAMIN 10-325 [Cohoes 10-325] 1 tablet PO Q6H #30 tablet Continue Lisinopril 20 mg PO DAILY Dapagliflozin Propanediol [Farxiga] 20 mg PO BEDTIME Liraglutide [Victoza 2-Regulo] 0.6 mg SUBCUT DAILY - Follow Up or Referral Follow Up: Julito Ag MD [Physician] - 2 Weeks (drain removal ) - Forms/Instructions Exam - Constitutional Vitals: Period Temp Pulse Resp BP Sys/[place] Pulse Ox Last 24 Hr 98.1 F-99.8 F 65-70 18-20 118-150/57-77 94-98 General appearance: normal weight, no acute distress - Head Head exam: Present: normal inspection, normocephalic, atraumatic - Eye Eye exam: Present: EOMI Pupils: Present: TUCKER - ENT ENT exam: Present: normal exam - Neck Neck exam: Present: normal inspection - Respiratory Respiratory exam: Present: clear to auscultation bilaterally. Absent: accessory muscle use, prolonged expiratory phase, wheezes - Cardiovascular Cardiovascular exam: Present: regular rate and rhythm. Absent: bradycardia, irregular rhythm, systolic murmur - GI/Abdominal GI/Abdominal exam: Present: normal bowel sounds. Absent: ascites, hypoactive bowel sounds, tenderness - Extremities Exam Extremities exam: Present: normal inspection Discharge Results Procedures and tests throughout hospitalization: Pending Orders 12/23/16 21:05 Blood Culture Stat 12/26/16 13:59 C. Diff Toxins A & B Routine Stool Culture Routine Stool for WBCs Routine Labs on day of discharge: Labs from last 24 hours 12/27/16 12/27/16 12/26/16 08:14 06:01 23:27 WBC RBC Hgb Hct MCV MCH MCHC RDW Plt Count MPV Neut % (Auto) Lymph % (Auto) [place] % (Auto) Eos % (Auto) Baso % (Auto) Neut # (Auto) Lymph # (Auto) [place] # (Auto) Eos # (Auto) Baso # (Auto) Immature Gran % Nucleated RBC % Immature Gran # Nucleated RBCs # POC Glucose 127 H 119 H 146 H 12/26/16 12/26/16 12/26/16 18:02 16:31 11:45 WBC RBC Hgb Hct MCV MCH MCHC RDW Plt Count MPV Neut % (Auto) Lymph % (Auto) [place] % (Auto) Eos % (Auto) Baso % (Auto) Neut # (Auto) Lymph # (Auto) [place] # (Auto) Eos # (Auto) Baso # (Auto) Immature Gran % Nucleated RBC % Immature Gran # Nucleated RBCs # POC Glucose 96 117 H 110 H 12/26/16 05:59 WBC 3.8 L D RBC 4.36 Hgb 13.1 Hct 40.0 MCV 91.7 MCH 30 MCHC 32.8 RDW 17.5 H Plt Count 83 L MPV 11.6 Neut % (Auto) 36.8 L Lymph % (Auto) 38.4 [place] % (Auto) 21.7 H Eos % (Auto) 2.6 Baso % (Auto) 0.5 Neut # (Auto) 1.4 Lymph # (Auto) 1.5 [place] # (Auto) 0.8 Eos # (Auto) 0.1 Baso # (Auto) 0.0 Immature Gran % 0.0 Nucleated RBC % 0.0 Immature Gran # 0.00 Nucleated RBCs # 0.00 POC Glucose Preliminary micro results at discharge 12/23/16 21:05 Blood Culture - Preliminary Blood No growth at 3 days 12/23/16 21:05 Blood Culture - Preliminary Blood No growth at 3 days DS: Provider Date of admission: 12/20/16 05:41 Primary care physician: . No PCP Attending physician on admission: Agueda Nails MD Consults: 12/22/16 10:53 Consult to Physician [CONS] Routine Comment: leukopenia; thrombocytopenia Consulting Provider: Luis Delvalle When should Consulting Provider be notified: Now Person Notified: CHRISTOPHER Date Notified: 12/22/16 Time Notified: 12:41 Discharging clinician: Agueda Nails MD Expected date of discharge: 12/27/16
[2016-12-27 13:27] VITALS: BP 132/55
== END 2016-12-27 13:31 | disposition home health service (06) | DRG 445 ==
LOC: N.ED 04:31 → N.EDINP 05:41 → N.2E 06:12
PROVIDERS: ADMIT Internal Medicine; ATTEND Internal Medicine
PROC: ERCPWSP (ICD-10-PCS; 2016-12-21 11:35)